=== PATIENT | female | born 1960 | race Caucasian/White ===

== ENCOUNTER 2021-10-27 13:56 | Emergency (ER) | payer OTHER, SELFPAY ==
--- NOTE | ~2021-10-27 | XR_ITS ---
EXAMINATION: XR abdomen obstructive series DATE: 10/27/2021 15:48 INDICATION: Right lower abdominal pain for 4 days. TECHNIQUE: Supine and upright views of the abdomen. FINDINGS: No prior studies for comparison. The visualized lung parenchyma is normal.. There is a nonobstructive bowel gas pattern. Gas and stool are seen throughout the colon to the level of the rectum. There is no free air. There are cholecyst ectomy clips. There are vascular calcifications in the pelvis. IMPRESSION: 1. No acute abdominal abnormality. Reviewed, dictated and finalized at location A. [employer] CONTRACT[employer]
[2021-10-27 14:20] VITALS: BP 145/69; PULSE 90; RESP 18; TEMP 36.7; O2SAT 97
--- NOTE | 2021-10-27 15:21 | ED.ABDPAIN ---
HPI - Abdominal Pain General Chief Complaint: Abdominal Pain Stated Complaint: poss uti History of Present Illness HPI narrative: History of partial this is a 61-year-old female presents with right-sided abdominal pain states that it feels like menstrual cramps. Patient is post menopausal CORAL states that she had a menstrual cycle for 15 years. Patient states that the pain has continued to get worse she has had since this weekend she did call her [employer] WORK[employer] she thinks it could possibly be her UTI or something else. Related Data Home Medications Medication Instructions Recorded Confirmed aripiprazole [Abilify] 10 mg PO DAILY 10/27/21 10/27/21 empagliflozin [Jardiance] mg 10/27/21 hydrochlorothiazide 10/27/21 linagliptin [Tradjenta] mg 10/27/21 lisdexamfetamine [Vyvanse] 10 mg PO DAILY 10/27/21 10/27/21 losartan 25 mg PO DAILY 10/27/21 10/27/21 metformin 500 mg PO BID 10/27/21 10/27/21 venlafaxine [Effexor] 25 mg PO BID 10/27/21 10/27/21 Allergies Allergy/AdvReac Type Severity Reaction Status Date / Time No Known Allergies Allergy Verified 10/27/21 15:00 Review of Systems Review of Systems: abdominal pain All systems reviewed & are unremarkable except as noted in HPI and below PMFSH Comments At time as signature, I have reviewed and agree with nursing past medical, social, surgical and family history. Please see nursing chart for further information. There is no relevant family history pertinent to the presenting complaint. Exam Narrative: GENERAL:Well-appearing, well-nourished, and in no acute distress. HEAD:Normocephalic, atraumatic. EYES: PERRLA and EOMI. ENT: Nares clear, no rhinorrhea or epistaxis. Mucous membranes moist. CHEST: Clear to auscultation. No respiratory distress. HEART: Regular rate and rhythm. No murmur heard. Normal peripheral pulses. ABDOMEN: Soft, nontender, nondistended, normal active bowel sounds. EXTREMITIES: Normal range of motion. No edema. SKIN: Warm, dry, no rash. NEURO: No focal deficits. Alert and oriented x3. 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 TECHNIQUE: Supine and upright views of the abdomen. FINDINGS: No prior studies for comparison. The visualized lung parenchyma is normal.. There is a nonobstructive bowel gas pattern. Gas and stool are seen throughout the colon to the level of the rectum. There is no free air. There are cholecystectomy clips. There are vascular calcifications in the pelvis. IMPRESSION: 1. No acute abdominal abnormality. Vital Signs Vital signs: Vital Signs Temperature 98.1 F 10/27/21 14:20 Pulse Rate 90 10/27/21 14:20 Respiratory Rate 18 10/27/21 14:20 Blood Pressure 145/69 H 10/27/21 14:20 Pulse Oximetry 97 10/27/21 14:20 Temperature 98.1 F 10/27/21 14:20 Pulse Rate 90 10/27/21 14:20 Respiratory Rate 18 10/27/21 14:20 Blood Pressure 145/69 H 10/27/21 14:20 Pulse Oximetry 97 10/27/21 14:20 MDM - Abdominal Pain Differential Diagnosis Differential diagnosis: Likely abdominal pain, acute appendicitis, constipation, endometriosis, gastroenteritis and pancreatitis Lab Data Labs: Urine Glucose 2+ Reference Range: Negative Urine Bilirubin Negative Reference Range: Negative Urine Ketone Negative Reference Range: Negative Urine Specific [place] 1.020 Reference Range:1.001-1.035 Urine Blood
== END 2021-10-27 16:55 | disposition home or self-care (01) ==
PROVIDERS: Emergency Provider Nurse Practitioner Family; PCP Hospitalist
DX: N30.90 Cystitis, unspecified without hematuria (principal); I10 Essential (primary) hypertension; E11.9 Type 2 diabetes mellitus without complications; F98.8 Other specified behavioral and emotional disorders with onset usually occurring in childhood and adolescence; F32.A Depression, unspecified
CPT/HCPCS: 74019; 81003; 99213; G0463